=== PATIENT | male | born 1985 | race African-American/Black ===

== ENCOUNTER 2017-04-03 15:20 | Emergency (ER) | payer SELFPAY ==
[~2017-04-03] VITALS: Ht 167.6 cm; Wt 100.0 kg
[~2017-04-03 15:20] MED LIST: AMOX500T PO; PRED20 PO
[2017-04-03 15:22] VITALS: BP 132/65; PULSE 68; RESP 14; TEMP 98.4; O2SAT 98
[2017-04-03] MEDS ORDERED: BACT800T5 PO (17:14)
--- NOTE | 2017-04-03 17:14 | PD ---
HPI Chief Complaint: Skin Problem Time Seen by Provider: 17:08 Travel History International Travel<30 days: No Contact w/Intl Traveler<30days: No Traveled to known affect area: No History of Present Illness HPI 32-year-old male presents emergency department for evaluation of left fourth digit pain. Patient reports he's had pain and tenderness around the site of the cuticle. Symptom onset 1 day. He denies drainage from the site. He denies fever or chills. He has full range of motion of the finger. Pain is localized to the distal aspect of the finger, nonradiating, aggravated by palpation no alleviating factors. Severity 4-10. PFSH Past Medical History Medical History: Denies Significant Hx Hx Anticoagulant Therapy: No Cardiovascular Problems: No Chemotherapy: No Cerebrovascular Accident: No Diabetes: No Diminished Hearing: No Respiratory: No Immunizations Current: Yes Social History Alcohol Use: No Tobacco Use: No Substance Use: No Allergies-Medications (Allergen,Severity, Reaction): Coded Allergies: No Known Allergies (Verified , 04/03/17) Reported Meds & Prescriptions Reported Meds & Active Scripts Active Deltasone (Prednisone) 20 Mg Tab 20 Mg PO BID Amoxil (Amoxicillin) 500 Mg Cap 500 Mg PO TID Review of Systems Except as stated in HPI: all other systems reviewed are Neg General / Constitutional: No: Fever Eyes: No: Visual changes HENT: No: Headaches Cardiovascular: No: Chest Pain or Discomfort Respiratory: No: Shortness of Breath Gastrointestinal: No: Abdominal Pain Physical Exam Narrative GENERAL: Well-nourished, well-developed patient. SKIN: Focused skin assessment warm/dry. HEAD: Normocephalic. EYES: No scleral icterus. No injection or drainage. NECK: Supple, trachea midline. No JVD or lymphadenopathy. CARDIOVASCULAR: Regular rate and rhythm without murmurs, gallops, or rubs. RESPIRATORY: Breath sounds equal bilaterally. No accessory muscle use. GASTROINTESTINAL: Abdomen soft, non-tender, nondistended. MUSCULOSKELETAL: No cyanosis, or edema. Right fourth digit: Mild swelling, erythema and acutely tender to the distal aspect of the digit primarily localized to the cuticle. No identifiable paronychia to melo open. BACK: Nontender without obvious deformity. No CVA tenderness. Data Data Last Documented VS Vital Signs Date Time Temp Pulse Resp B/P Pulse Ox O2 Delivery O2 Flow Rate FiO2 04/03/17 15:22 98.4 68 14 132/65 98 MDM Medical Decision Making Medical Screen Exam Complete: Yes Emergency Medical Condition: Yes Differential Diagnosis Paronychia, felon, cellulitis Narrative Course 32-year-old male with chief complaint of left fourth digit pain times one day. The area appears to be an early paronychia. There is no cellulitis of the finger hand. There is no identifiable site for Yoli. All induration or fluctuance. Patient will be put on antibiotics instructed to return in 1-2 days for recheck and possible Yoli. Patient verbalizes understanding and agrees to plan. Diagnosis Primary Impression: Paronychia Qualified Code: L03.012 - Paronychia, left Referrals: Primary Care Physician Additional Instructions: Take the antibiotics as prescribed. Follow-up with primary care doctor in 1-2 days. Scripts Sulfamethoxazole-Trimethoprim (Bactrim DS)800-160 Mg Tab1 Tab PO BID #20 TAB Prov:Estella uHng 04/03/17 Disposition: 01 DISCHARGE HOME Condition: Stable Estella Hung Apr 03, 2017 17:14
== END 2017-04-03 17:25 | disposition home or self-care (01) ==
LOC: NEPK 15:20
DX: L03.012 Cellulitis of left finger (principal); Z79.899 Other long term (current) drug therapy
CPT/HCPCS: 99283